=== PATIENT | female | born 1970 | race Caucasian/White ===

== ENCOUNTER 2018-04-21 16:16 | Observation (INO) ==
[2018-04-21] MEDS ORDERED: LABETALOL HCL IV 5 MG/ML 20ML IV STA (16:32)
[2018-04-21] MEDS ORDERED: ASPIRIN CHEW 324 MG PO STA (16:32)
--- NOTE | 2018-04-21 16:44 | Emergency Department Note ---
Entered by June Hernandez acting as a scribe for Ki Lobo MD History of Present Illness General Chief complaint: Chest Pain Stated complaint: CHEST PAINS Time Seen by Provider: 04/21/18 16:18 Source: patient History of Present Illness Onset (ago): unknown (last week) Location: chest Pain Consistency: + intermittent Maximum Pain Intensity: 5 Quality: + other (cramping/tight) Associated symptoms: + denies other symptoms (left arm pain, lightheaded, left shoulder "aching" ), + diaphoresis and + shortness of breath The patient is a 47 year old female who presents to the Emergency Room with complaints of intermittent chest pain that started last week. The patient rates her pain a 4-5/10 in severity. She reports she had some sharp episodes that would last about 1-2 minutes last week. She notes today the pain is more " crampy and tight." She also complains of left arm pain, lightheadedness, left shoulder "aching," shortness of breath, and intermittent diaphoresis with exertion. She states the pain is not exertional, but when she bends over she notices the pain more. The patient reports she was also brushing her teeth earlier and coughed up blood, but states it has not happened since then. She notes she has a history of pneumonia. The patient states she had a stress test many years ago and no issues were found. She reports a history of hypertension, increased heart rate, and high cholesterol. She states she was told to follow up with a [employer] but she has not done so. She denies a history of diabetes , as well as blood clots in the legs or lungs. She also denies any recent travels. The patient notes she last saw her PCP last spring or summer. The patient is a current every day smoker. Home Medications Home Medications Medication Instructions Recorded Confirmed Type hydrocodone-acetaminophen 1 - 2 tabs PO BID PRN 04/21/18 04/21/18 History magnesium oxide 400 mg PO DAILY 04/21/18 04/21/18 History oxycodone 5 mg PO BID PRN 04/21/18 04/21/18 History Allergies Allergy/AdvReac Type Severity Reaction Status Date / Time No Known Allergies Allergy Verified 04/21/18 17:03 Past Med/Surg History Medical History Hypercholesterolemia Hypertension Social History Feels Safe at Home: Yes Smoking Status: Current every day smoker Review of Systems See HPI for pertinent positives & negatives. and A total of 10 systems reviewed and were otherwise negative Physical Exam Vital Signs Vital Signs - 24 hr 04/21/18 16:23 04/21/18 16:24 04/21/18 16:33 Temperature 36.8 C Temperature Source Oral Sepsis Recent Fever Within 48 Hours No Sepsis New/Unexplained Change in Mental Status No Sepsis Action Taken by Nursing No Action Required Pulse Rate 128 H 110 H 113 H Pulse Rhythm Regular Regular Pulse Strength Normal Respiratory Rate 22 19 18 Respiratory Effort / Characteristics Non-Labored Spontaneous Respiratory Depth Normal Respiratory Pattern Regular Blood Pressure 165/114 H 165/114 H Blood Pressure Mean 131 131 Blood Pressure Position Sitting Pulse Oximetry 100 100 100 Oxygen Delivery Method Room Air Room Air 04/21/18 16:47 04/21/18 16:50 04/21/18 16:55 Temperature Temperature Source Sepsis Recent Fever Within 48 Hours Sepsis New/Unexplained Change in Mental Status Sepsis Action Taken by Nursing Pulse Rate 114 H 118 H 113 H Pulse Rhythm Pulse Strength Respiratory Rate 19 23 19 Respiratory Effort / Characteristics Respiratory Depth Respiratory Pattern Blood Pressure Blood Pressure Mean Blood Pressure Position Pulse Oximetry 99 99 Oxygen Delivery Method 04/21/18 16:58 04/21/18 17:00 04/21/18 17:01 Temperature Temperature Source Sepsis Recent Fever Within 48 Hours Sepsis New/Unexplained Change in Mental Status Sepsis Action Taken by Nursing Pulse Rate 115 H 114 H 111 H Pulse Rhythm Pulse Strength Respiratory Rate 19 20 23 Respiratory Effort / Characteristics Respiratory Depth Respiratory Pattern Blood Pressure 146/107 H 159/102 H Blood Pressure Mean 120 121 Blood Pressure Position Pulse Oximetry 99 99 99 Oxygen Delivery Method 04/21/18 17:05 04/21/18 17:06 Temperature Temperature Source Sepsis Recent Fever Within 48 Hours Sepsis New/Unexplained Change in Mental Status Sepsis Action Taken by Nursing Pulse Rate 104 H 100 H Pulse Rhythm Pulse Strength Respiratory Rate 13 15 Respiratory Effort / Characteristics Respiratory Depth Respiratory Pattern Blood Pressure 144/97 H Blood Pressure Mean 112 Blood Pressure Position Pulse Oximetry 99 99 Oxygen Delivery Method GENERAL: Patient is in no acute distress. HEENT: No acute trauma, normocephalic atraumatic, mucous membranes moist, no nasal congestion, no scleral icterus. NECK: No stridor, no adenopathy, no meningismus, trachea is midline. LUNGS: Clear to auscultation bilaterally, no wheeze, no rhonchi, breath sounds equal. HEART: Tachycardic with a regular rhythm, no murmurs. CHEST: Mildly tender over left anterior chest wall. ABDOMEN: Soft, nontender, bowel sounds positive, no hernias, no peritonitis. EXTREMITIES: No cyanosis or edema, full range of motion of all the joints without pain or difficulty, no signs for acute trauma. NEUROLOGIC: Oriented x 3, no acute motor or sensory deficits, no focal weakness. SKIN: No rash, no jaundice, no diaphoresis. Course 161: Past medical records reviewed. The patient was evaluated in room B2, and a complete history and physical examination were performed. 1739: I updated the patient on her results at this time. 1802: I reevaluated the patient. She is doing well. Her blood pressure and heart rate have improved. 1811: I discussed the patient's case with Dr. Armenta, [facility] Hospitalist. He will evaluate the patient for further management and care. Consultations Consultation #1: I discussed the patient's case with Dr. Armenta [facility] Hospitalist. He will evaluate the patient for further management and care. Time: 18:12 Administered Medications Ioversol (Optiray 320 125ml) 94 ml IV ONCE PRN PRN Reason: Interaction Checking Stop: 04/25/18 17:32 Last Admin: 04/21/18 17:33 Dose: 94 ml Discontinued Medications Aspirin (Aspirin) 324 mg PO NOW STA Stop: 04/21/18 16:33 Last Admin: 18 16:54 Dose: 324 mg Sodium Chloride (Nss) 500 mls @ 999 mls/hr IV .Q31M DICK Stop: 04/21/18 17:15 Last Infusion: 04/21/18 17:40 Dose: 0 mls/hr Admin: 18 16:54 Dose: 999 mls/hr Labetalol HCl (Normodyne) 20 mg IV NOW STA Stop: 04/21/18 16:33 Last Admin: 18 16:55 Dose: 20 mg Medical Decision Making Differential Diagnosis Differential includes: [place], angina, PE, aortic dissection, pneumonia, pneumothorax, anemia, musculoskeletal pain. Medical Records Attestation: I reviewed the patient's medical records. Home Medications Current Medication List: was personally reviewed by me Laboratory Data Attestation: I reviewed the patient's lab results. Result diagrams: 04/21/18 16:35 04/21/18 16:35 Lab Results 04/21/18 04/21/18 04/21/18 Range/Units 16:35 16:35 16:35 WBC 8.12 (4.8-10.8) K/uL RBC 4.60 (4.2-5.4) M/uL Hgb 15.9 (12.0-16.0) g/dL Hct 44.0 (37-47) % MCV 95.7 (80-100) fL MCH 34.6 H (25-34) pg MCHC 36.1 H (32-36) g/dL RDW Std Deviation 43.3 (36.4-46.3) fL RDW Coeff of [place] 12.5 (11.5-14.5) % Plt Count 317 (130-400) K/uL MPV 9.8 (7.4-10.4) fL Immature Gran % (Auto) 0.2 % Neut % (Auto) 72.1 % Lymph % (Auto) 20.7 % Holmes % (Auto) 5.7 % Eos % (Auto) 0.6 % Baso % (Auto) 0.7 % Immature Gran # (Auto) 0.02 (0.00-0.02) K/uL Neut # (Auto) 5.85 (1.4-6.5) K/uL Lymph # (Auto) 1.68 (1.2-3.4) K/uL Holmes # (Auto) 0.46 (0.11-0.59) K/uL Eos # (Auto) 0.05 (0-0.5) K/uL Baso # (Auto) 0.06 (0-0.2) K/uL PT 10.7 (9.0-12.0) Seconds INR 1.1 (0.9-1.1) APTT 26.3 (21.0-31.0) Seconds PTT Ratio 1.0 Sodium 136 (136-145) mmol/L Potassium 4.0 (3.5-5.1) mmol/L Chloride 101 (98-107) mmol/L Carbon Dioxide 25 (21-32) mmol/L Anion Gap 9.0 (3-11) BUN 10 (7-18) mg/dl Creatinine 0.94 (0.6-1.2) mg/dl Est Cr Clr Drug Dosing 81.2 ml/min Est GFR ( Amer) 83.7 Est GFR (Non-Af Amer) 72.2 BUN/Creatinine Ratio 10.6 (10-20) Glucose 85 (70-99) mg/dl Calcium 9.5 (8.5-10.1) mg/dl Magnesium 2.1 (1.8-2.4) mg/dl Total Bilirubin 0.4 (0.1-1) mg/dl AST 23 (15-37) U/L ALT 25 (12-78) U/L Alkaline Phosphatase 44 L (45-117) U/L Troponin I < 0.015 (0-0.045) ng/ml Total Protein 9.5 H (6.4-8.2) gm/dl Albumin 4.6 (3.4-5.0) gm/dl Globulin 4.9 H (2.5-4.0) gm/dl Albumin/Globulin Ratio 0.9 (0.9-2) Lipase 201 (73-393) U/L HCG, Qual (Negative) 04/21/18 Range/Units 16:35 WBC (4.8-10.8) K/uL RBC (4.2-5.4) M/uL Hgb (12.0-16.0) g/dL Hct (37-47) % MCV (80-100) fL MCH (25-34) pg MCHC (32-36) g/dL RDW Std Deviation (36.4-46.3) fL RDW Coeff of [place] (11.5-14.5) % Plt Count (130-400) K/uL MPV (7.4-10.4) fL Immature Gran % (Auto) % Neut % (Auto) % Lymph % (Auto) % Holmes % (Auto) % Eos % (Auto) % Baso % (Auto) % Immature Gran # (Auto) (0.00-0.02) K/uL Neut # (Auto) (1.4-6.5) K/uL Lymph # (Auto) (1.2-3.4) K/uL Holmes # (Auto) (0.11-0.59) K/uL Eos # (Auto) (0-0.5) K/uL Baso # (Auto) (0-0.2) K/uL PT (9.0-12.0) Seconds INR (0.9-1.1) APTT (21.0-31.0) Seconds PTT Ratio Sodium (136-145) mmol/L Potassium (3.5-5.1) mmol/L Chloride (98-107) mmol/L Carbon Dioxide (21-32) mmol/L Anion Gap (3-11) BUN (7-18) mg/dl Creatinine (0.6-1.2) mg/dl Est Cr Clr Drug Dosing ml/min Est GFR ( Amer) Est GFR (Non-Af Amer) BUN/Creatinine Ratio (10-20) Glucose (70-99) mg/dl Calcium (8.5-10.1) mg/dl Magnesium (1.8-2.4) mg/dl Total Bilirubin (0.1-1) mg/dl AST (15-37) U/L ALT (12-78) U/L Alkaline Phosphatase (45-117) U/L Troponin I (0-0.045) ng/ml Total Protein (6.4-8.2) gm/dl Albumin (3.4-5.0) gm/dl Globulin (2.5-4.0) gm/dl Albumin/Globulin Ratio (0.9-2) Lipase (73-393) U/L HCG, Qual Negative (Negative) Imaging Data Radiologist's Impression: Radiology results as stated below per my review and the radiologist's interpretation: XR chest 1V portable HISTORY: Atypical Chest Pain COMPARISON: Chest CT 03/11/2017. FINDINGS: The lungs are clear. Cardiac silhouette is normal in size. No pleural effusions. No pneumothorax. IMPRESSION: No acute process. Electronically signed by: Godfrey Lynn M.D. 04/21/2018 5:21 PM. CHEST CTA for PULMONARY ARTERIES CT DOSE: 301.76 mGy.cm HISTORY: Left-sided chest pain. TECHNIQUE: Multiaxial CT images of the chest were performed following the intravenous administration of contrast to evaluate the pulmonary arteries. Maximal intensity projection images were also obtained. A dose lowering technique was utilized adhering to the principles of ALARA. COMPARISON STUDY: Chest CT 03/11/2017. FINDINGS: There is a healing left lateral ninth rib fracture. No acute fractures within the visualized osseous structures. Cholecystectomy. The visualized spleen and left adrenal gland are unremarkable. Stable mild thickening of the right adrenal gland. There are 2 hypodense lesions within the liver with the largest in the right hepatic lobe measuring 4.2 cm. These remain unchanged and likely represent cysts. No mediastinal or hilar lymphadenopathy. The heart is normal in size. No pleural or pericardial effusions. No pneumothorax. The central airways are patent. Stable 3 mm nodule within the left lower lobe in image 83. Therefore, this is likely benign. Otherwise, the lungs are clear. Normal caliber thoracic aorta with no evidence for dissection. No filling defects within the pulmonary arteries to suggest pulmonary embolus. IMPRESSION: 1. No evidence for pulmonary embolus. 2. Healing left lateral ninth rib fracture. No acute rib fractures. No pneumothorax. 3. Additional stable findings as described above. Electronically signed by: Godfrey Lynn M.D. 04/21/2018 5:57 PM ECG Data Attestation: I personally reviewed and interpreted this ECG as follows: Indication: chest pain Rate (beats per minute): 133 Rhythm: sinus tachycardia Findings: no PVC and no ST elevation Blood Pressure Blood Pressure Findings: Elevated blood pressure Blood Pressure Disposition: further management by hospitalist MDM Narrative There is no leukocytosis or concerning anemia. No significant electrolyte abnormality, kidney failure or hepatitis. There is no coagulopathy. No evidence for pancreatitis. testing was negative. EKG shows a sinus tachycardia, no acute ischemia. Cardiac enzyme testing x1 is not consistent with acute cardiac injury. Chest film does not show mediastinal widening, pneumothorax or pneumonia. Chest CT does not show evidence for PE or for aortic dissection. Patient received IV saline, oral aspirin and IV Lopressor. Her symptoms have improved, her heart rate and blood pressure are improved. The patient presents with chest pain. She has multiple cardiac risk factors. Things have worsened for her in the last week. I do think further cardiac workup would be warranted. I spoke to the patient at length, I talked with case management. The on-call hospitalist was consulted. Impression & Plan Precordial chest pain, Hypertension, Tachycardia Discharge Plan Visit Data Chief Complaint: Chest Pain Stated Complaint: CHEST PAINS ED Provider: Ki Lobo Discharge Problem: Precordial chest pain, Hypertension, Tachycardia Patient Disposition: Being Evaluated by Hospitalist Forms Stand Alone Forms: Call Back Authorization, My [facility] Prescriptions Prescriptions: No Action magnesium oxide 400 mg (241.3 mg magnesium) tablet 400 mg PO DAILY RF: 0 hydrocodone-acetaminophen 5-325 mg Tablet 1 - 2 tabs PO BID PRN (Reason: Pain) RF: 0 oxycodone 5 mg Capsule 5 mg PO BID PRN (Reason: Pain) RF: 0 Referrals Referrals: Junior Goldberg DO [Primary Care Provider] - The scribe's documentation has been prepared under my direction and personally reviewed by me in its entirety. I confirm that the note above accurately reflects all work, treatment, procedures, and medical decision making performed by me.
[2018-04-21] MEDS ORDERED: SODIUM CHLORIDE 0.9% 500 ML IV SCH (16:45)
[2018-04-21 17:00] LABS: Basophils # (auto) 0.06 K/uL (0-0.2); Basophils % (auto) 0.7 %; Eosinophils # (auto) 0.05 K/uL (0-0.5); Eosinophils % (auto) 0.6 %; Hemoglobin 15.9 g/dL (12.0-16.0); Immature Granulocytes # (auto) 0.02 K/uL (0.00-0.02); Immature Granulocytes % (auto) 0.2 %; Lymphocytes # (auto) 1.68 K/uL (1.2-3.4); Lymphocytes % (auto) 20.7 %; Mean Corpuscular Hgb Conc 36.1 g/dL (32-36); Mean Corpuscular Volume 95.7 fL (80-100); Mean Platelet Volume 9.8 fL (7.4-10.4); Monocytes # (auto) 0.46 K/uL (0.11-0.59); Monocytes % (auto) 5.7 %; Neutrophils # (auto) 5.85 K/uL (1.4-6.5); Neutrophils % (auto) 72.1 %; Platelet Count 317 K/uL (130-400); RDW Coefficient of Variation 12.5 % (11.5-14.5); RDW Standard Deviation 43.3 fL (36.4-46.3); White Blood Count 8.12 K/uL (4.8-10.8)
[2018-04-21 17:13] LABS: Albumin Level 4.6 gm/dl (3.4-5.0); Aspartate Aminotransferase 23 U/L (15-37); BUN Creatinine Ratio 10.6 (10-20); Blood Urea Nitrogen 10 mg/dl (7-18); Calcium 9.5 mg/dl (8.5-10.1); Carbon Dioxide 25 mmol/L (21-32); Chloride 101 mmol/L (98-107); Creatinine Clr Calc Pharmacy 81.2 ml/min; Est GFR (African American) 83.7; Est GFR (Non-African American) 72.2; Glucose 85 mg/dl (70-99); Magnesium 2.1 mg/dl (1.8-2.4); Sodium 136 mmol/L (136-145)
[2018-04-21 17:18] LABS: Alanine Aminotransferase 25 U/L (12-78); Albumin Globulin Ratio 0.9 (0.9-2); Alkaline Phosphatase 44 U/L (45-117); Bilirubin,Total 0.4 mg/dl (0.1-1); Globulin 4.9 gm/dl (2.5-4.0); Total Protein 9.5 gm/dl (6.4-8.2); Troponin I < 0.015 ng/ml (0-0.045)
--- NOTE | 2018-04-21 17:23 | XRay Report ---
XR chest 1V portable HISTORY: Atypical Chest Pain COMPARISON: Chest CT 03/11/2017. FINDINGS: The lungs are clear. Cardiac silhouette is normal in size. No pleural effusions. No pneumot horax. IMPRESSION: No acute process. Electronically signed by: Godfrey Lynn M.D. 04/21/2018 5:21 PM
[2018-04-21 17:25] LABS: Pregnancy Test, Serum Negative (Negative)
[2018-04-21] MEDS ORDERED: OPTIRAY 320 125ml IV PRN (17:33)
[2018-04-21 17:49] LABS: INR 1.1 (0.9-1.1); Partial Thromboplastin Time 26.3 Seconds (21.0-31.0); Prothrombin Time 10.7 Seconds (9.0-12.0)
--- NOTE | 2018-04-21 17:58 | CT Scan Report ---
CHEST CTA for PULMONARY ARTERIES CT DOSE: 301.76 mGy.cm HISTORY: Left-sided chest pain. TECHNIQUE: Multiaxial CT images of the chest were performed following the intravenous administration of contrast to evaluate the pulmonary arteries. Maximal intensity projection images were also obtaine d. A dose lowering technique was utilized adhering to the principles of ALARA. COMPARISON STUDY: Chest CT 03/11/2017. FINDINGS: There is a healing left lateral ninth rib fracture. No acute fractures within the visualize d osseous structures. Cholecystectomy. The visualized spleen and left adrenal gland are unremarkable. Stable mild thickening of the right adrenal gland. There are 2 hypodense lesions within the liver wi th the largest in the right hepatic lobe measuring 4.2 cm. These remain unchanged and likely represen t cysts. No mediastinal or hilar lymphadenopathy. The heart is normal in size. No pleural or pericard ial effusions. No pneumothorax. The central airways are patent. Stable 3 mm nodule within the left lo wer lobe in image 83. Therefore, this is likely benign. Otherwise, the lungs are clear. Normal calibe r thoracic aorta with no evidence for dissection. No filling defects within the pulmonary arteries to suggest pulmonary embolus. IMPRESSION: 1. No evidence for pulmonary embolus. 2. Healing left lateral ninth rib fracture. No acute rib fractures. No pneumothorax. 3. Additional stable findings as described above. Electronically signed by: Godfrey Lynn M.D. 04/21/2018 5:57 PM
[2018-04-21] MEDS ORDERED: ALUMINUM/MAGNESIUM SUSP 30 ML UDC PO PRN (21:09)
[2018-04-21] MEDS ORDERED: ONDANSETRON INJ 2 MG/ML 2 ML VIAL IV PRN (21:09)
[2018-04-21] MEDS ORDERED: MAGNESIUM HYDROXIDE SUSP 30 ML UDC PO PRN (21:09)
[2018-04-21] MEDS ORDERED: POLYETHYLENE (MIRALAX) 17 GM PACK PO PRN (21:09)
[2018-04-21] MEDS ORDERED: HYDROCODONE/ACETAMOPHEN 5/325MG TAB PO PRN (21:09)
[2018-04-21] MEDS ORDERED: NITROGLYCERIN SL 0.4 MG/TAB TAB SL PRN (21:09)
[2018-04-21] MEDS ORDERED: ACETAMINOPHEN 325 MG TAB PO PRN (21:09)
[2018-04-21] MEDS ORDERED: OXYCODONE HCL IR 5 MG TAB (IMMEDIATE RELEASE) PO PRN (21:17)
[2018-04-21] MEDS ORDERED: Nursing to Pharmacy Communication ONE (22:15)
[2018-04-21] MEDS: NICOTINE 21 MG/24 HR TDSY TD SCH (22:34)
--- NOTE | 2018-04-21 22:42 | History & Physical Report ---
Date of Service April 21, 2018 Assessment & Plan (1) Precordial chest pain: Her symptoms, combined with a clear chest CT, essentially rule out lung pathology as the culprit. Her risks including blood pressure, cholesterol, and tobacco, make coronary disease the diagnosis of exclusion. -We will rule this out with serial troponins, and then a stress echo in the morning, if the troponins are negative. Her symptoms do appear most consistent with musculoskeletal pain, given that her cervical radiculopathy has been bothering her more, her shoulder girdle and upper rib cage muscles are likely tense from being more guarded overall. I suspect she would benefit from ongoing OMT. (2) Hypertension: She has been given labetalol in the ER. She notes at home her blood pressures typically run 120/80 type ranges. She is uncertain of the validity of her cuff, but we discussed that generally ambulatory pressures are going to carry an overall better degree of accuracy of the patient's baseline state, then pressures when they are in the hospital under significant stress. We will follow this closely, and treat if needed, otherwise outpatient follow-up. (3) Tachycardia: She notes a baseline resting heart rate of around 100. It is possible this is simply just her baseline. We will follow her heart rates, and check an echocardiogram in the morning to rule out structural heart disease. She appears to be sinus, so I would not necessarily treat specifically for sinus tachycardia. She may need outpatient ambulatory rhythm monitoring. (4) Hypercholesterolemia: Check a lipid panel in the morning. (5) Back pain: She notes a history of facet arthritis, as well as symptoms that do seem to fit with a degree of radiculopathy, but these do not appear to dominate her picture of symptomatology. It seems most consistent with predominantly muscular low back pain, especially given what treatments she is failed. Her tenderness in the piriformis region seems to corroborate this quite significantly, as does her paraspinal hypertonicity. I discussed with her at length treatment modalities for this, and that with my experience with prior patients with significant back histories, a majority of people finally showed improvement in symptoms with manipulative medicine directed predominantly at the soft tissues. She seemed simultaneously both understanding and skeptical, I noted that I would give her good outline of my assessment of her back pain, and what treatment plan I would consider her appropriate for, so that she can pursue at her own discretion after discharge. In the meantime, we will initiate Voltaren gel. I gave consideration to initiating OMT here, but given that it will likely take quite a while of repeated treatments to start to improve this chronic condition, I felt that one treatment at a random point in time would likely not improve her symptoms, but if she saw treatment give her no immediate relief, it might falsely direct her away from what will likely be a helpful modality for her pain. (6) Cervical radiculopathy: Ongoing outpatient follow-up, she may benefit from OMT directed at cervical paraspinal and related musculature hypertonicity as well, even if the disc is not directly addressed. (7) DVT prophylaxis: Ambulation (8) Elevated total protein: Seems to be persistent, she shows no lesions on x-ray that would be consistent with a protein deposition or myelomatous process, so mostly this should be for outpatient follow-up. One could consider something such as an SPEP or UPEP for completeness. History of Present Illness Chief Complaint: Chest pain Primary Care Provider: Junior Goldberg DO Patient has had chest pain on again off again for the last day or so. For the most part it is substernal and a little bit left of sternal, noting it is stabbing in sensation "like an ice poker" whenever it is going on she feels like she cannot quite get enough air, she does not specifically relate that it hurts to breathe, more that she cannot get enough air. Although separately she notes a sensation of not being able to get enough air that may be unrelated to the chest pain. This is all been going on again off again for several days, and then today, the pain was much bigger broader and more diffuse across her entire chest. She has also had times where it was more in the left upper chest. Generally the sensation is always stabbing like a poker. She has had a degree of dyspnea on exertion, however she notes it is been slowly worsening over several years, as she has been less and less active due to back pain, not anything that has abruptly worsened recently. She does continue to smoke, although the last several days given that she is feeling worse, she notes she is cut down considerably. Last time she tried to quit was in her early 30s, and she seemed to quit successfully without trouble for several months, it is unclear why she started smoking again. She does note that her smokes and right now quitting would be very difficult. She notes a baseline of resting tachycardia, and relates that her resting heart rate seems to hover around 100 210, and has for quite a long time. She also relates that more recently she has been dealing pain radiating to her left shoulder due to cervical disc disease. And she notes that due to low back pain, she has had a lot of pain progressive stiffness and decreased mobility over the last 10 years. This pain is mostly in her lower back, and buttock. It does occasionally radiate down her leg to her heel or foot. She notes she has been seen at several centers, and they have told her that surgery is not an option. She is tried physical therapy which has not really helped, and she has tried chiropractic which has not really helped, although on specific clarification she had been treated with chiropractic that did almost exclusively bony adjustments, and not necessarily any soft tissue work. Allergies Allergy/AdvReac Type Severity Reaction Status Date / Time No Known Allergies Allergy Verified 04/21/18 17:03 Home Medications Home Medications Medication Instructions Recorded Confirmed Type hydrocodone-acetaminophen 1 - 2 tabs PO BID PRN 04/21/18 04/21/18 History magnesium oxide 400 mg PO DAILY 04/21/18 04/21/18 History oxycodone 5 mg PO BID PRN 04/21/18 04/21/18 History Past Med/Surg History Medical History Hypercholesterolemia Hypertension Family History Father Coronary artery disease Social History Current Living Situation: Spouse Current Living Situation Comment: with Other Information That Helps Us Care for You: No Feels Safe at Home: Yes Smoking Status: Current every day smoker Tobacco Type: cigarettes Cigarettes per Day: 20 Do You Dip or Chew Tobacco: No Second Hand Exposure: Yes Tobacco Cessation Education Requested by Patient: Yes Hx Alcohol Use: Yes Alcohol type: beer Alcohol Intake Frequency: 0-2 drinks per day Beliefs That Will Affect Care: None Preferred Language: Kiswahili Communication Ability: Effective Avp Required: No Review of Systems All systems reviewed & are unremarkable except as noted in HPI & below She also notes that she is perimenopausal and occasionally gets hot flashes and sweats, but that has been unrelated to the current situation. Physical Exam 2 Vital Signs (Past 24 Hours): Last Vital Signs Temp 36.9 C 04/21/18 21:14 Pulse 96 H 04/21/18 21:14 Resp 16 04/21/18 21:14 BP 153/92 H 04/21/18 21:14 Pulse Ox 96 04/21/18 21:14 Physical Exam: In general she is awake alert oriented x3, pleasant, appears a bit anxious, but no acute distress. HEENT normocephalic atraumatic mucous members are moist. Cardio is regular without any rubs murmurs or gallops. Lungs clear to auscultation bilaterally no rales rhonchi or wheezes good effort. Skin shows no rashes no pallor or icterus. Abdomen is soft nondistended nontender no masses or organomegaly. Extremities show no cyanosis clubbing or edema, no calf tenderness. Neuro exam shows cranial nerves II through XII are grossly intact gross motor and sensory intact. Musculoskeletal exam shows significant almost wincing reproducibly tender anterior chest wall in the intercostal region and possibly in the region of pectoralis major and pectoralis minor. She also has rather significant bilateral paraspinal hypertonicity. She has fairly exquisite tenderness in the region of her right piriformis muscle. Mental status shows good recent and remote recall, somewhat anxious mood and affect, good judgment and insight overall. Results & Data Laboratory Results Noted reviewed, and is in the chart. Her troponin is negative right now. Diagnostic Findings Labs and diagnostics noted, her EKG shows no ischemic changes. _ (1) Hypertension Hypertension type: unspecified Qualified Code(s): I10 - Essential (primary) hypertension
[2018-04-22 02:24] LABS: Chol HDL Ratio 3; Cholesterol 236 mg/dl (0-200); HDL Cholesterol 70 mg/dl; LDL Cholesterol Calculated 136 mg/dl; Triglycerides 148 mg/dl (0-150); Troponin I < 0.015 ng/ml (0-0.045); VLDL Cholesterol 30 mg/dl
[2018-04-22] MEDS: DICLOFENAC SOD 1% GEL 100 GM TUBE EXT SCH ×2 (07:26→12:36)
[2018-04-22] MEDS ORDERED: INFLUENZA ADMINISTRATION CHARGE ONE (08:00)
[2018-04-22] MEDS ORDERED: INFLUENZA VIRUS QUAD VACCINE 0.5 ML SYR IM ONE (08:00)
[2018-04-22] MEDS ORDERED: MAGNESIUM OXIDE 400 MG TAB PO SCH (09:00)
[2018-04-22] MEDS: NICOTINE 21 MG/24 HR TDSY TD SCH (10:15)
--- NOTE | 2018-04-22 16:55 | Discharge Summary ---
Date of Service April 22, 2018 Admission HPI Per Admitting Provider Patient has had chest pain on again off again for the last day or so. For the most part it is substernal and a little bit left of sternal, noting it is stabbing in sensation "like an ice poker" whenever it is going on she feels like she cannot quite get enough air, she does not specifically relate that it hurts to breathe, more that she cannot get enough air. Although separately she notes a sensation of not being able to get enough air that may be unrelated to the chest pain. This is all been going on again off again for several days, and then today, the pain was much bigger broader and more diffuse across her entire chest. She has also had times where it was more in the left upper chest. Generally the sensation is always stabbing like a poker. She has had a degree of dyspnea on exertion, however she notes it is been slowly worsening over several years, as she has been less and less active due to back pain, not anything that has abruptly worsened recently. She does continue to smoke, although the last several days given that she is feeling worse, she notes she is cut down considerably. Last time she tried to quit was in her early 30s, and she seemed to quit successfully without trouble for several months, it is unclear why she started smoking again. She does note that her smokes and right now quitting would be very difficult. She notes a baseline of resting tachycardia, and relates that her resting heart rate seems to hover around 100 210, and has for quite a long time. She also relates that more recently she has been dealing pain radiating to her left shoulder due to cervical disc disease. And she notes that due to low back pain, she has had a lot of pain progressive stiffness and decreased mobility over the last 10 years. This pain is mostly in her lower back, and buttock. It does occasionally radiate down her leg to her heel or foot. She notes she has been seen at several centers, and they have told her that surgery is not an option. She is tried physical therapy which has not really helped, and she has tried chiropractic which has not really helped, although on specific clarification she had been treated with chiropractic that did almost exclusively bony adjustments, and not necessarily any soft tissue work. Principal Diagnosis Muscular chest pain Discharge Data Allergies Allergy/AdvReac Type Severity Reaction Status Date / Time No Known Allergies Allergy Verified 04/21/18 17:03 Consultations 04/21/18 18:13 ED Decision to Admit Stat Ordered Studies 04/21/18 16:32 CT angio chest PE protocol Stat Hospital Course (1) Precordial chest pain: Her symptoms, combined with a clear chest CT, essentially rule out lung pathology as the culprit. Her negative cardiac enzymes, and normal stress echo/echocardiogram effectively rule out cardiac pathology as the cause. Her risks including blood pressure, cholesterol, and tobacco, made coronary disease the diagnosis of exclusion, necessitating her expedited workup.. Her symptoms do appear most consistent with musculoskeletal pain, given that her cervical radiculopathy has been bothering her more, her shoulder girdle and upper rib cage muscles are likely tense from being more guarded overall. I suspect she would benefit from ongoing OMT. We had an extensive discussion about this. I have also prescribed Voltaren gel. She is stable for home, with close follow-up. (2) Hypertension: Inpatient blood pressures were a bit labile, ranging from stage II type hypertensive readings to very normal. I suspect her elevations were more from stress, and the hospital environment in general, she does have a blood pressure cuff at home, and she should check frequent ambulatory monitoring, and check her cuff against the cuff at her PCPs office for accuracy. (3) Tachycardia: She notes a baseline resting heart rate of around 100. It is possible this is simply just her baseline. Other than poor exercise tolerance, there was no pathology that appears to have been causing this (4) Hypercholesterolemia: She is dyslipidemic, by Allamuchy criteria she would benefit from a statin, by the ACC guidelines lifestyle change alone would suffice. Probably the biggest thing would be reducing her cardiac risk overall by getting her to quit smoking, which we discussed repeatedly and extensively. For now we will defer statin are not to her PCP and for ongoing follow-up. (5) Back pain: She notes a history of facet arthritis, as well as symptoms that do seem to fit with a degree of radiculopathy, but these do not appear to dominate her picture of symptomatology. It seems most consistent with predominantly muscular low back pain, especially given what treatments she is failed. Her tenderness in the piriformis region seems to corroborate this quite significantly, as does her paraspinal hypertonicity. I discussed with her at length treatment modalities for this, and that with my experience with prior patients with significant back histories, a majority of people finally showed improvement in symptoms with manipulative medicine directed predominantly at the soft tissues. She seemed simultaneously both understanding and skeptical, I noted that I would give her good outline of my assessment of her back pain, and what treatment plan I would consider her appropriate for, so that she can pursue at her own discretion after discharge. In the meantime, we will initiate Voltaren gel. I gave consideration to initiating OMT here, but given that it will likely take quite a while of repeated treatments to start to improve this chronic condition, I felt that one treatment at a random point in time would likely not improve her symptoms, but if she saw treatment give her no immediate relief, it might falsely direct her away from what will likely be a helpful modality for her pain. We discussed that treatment could be possibly carried out by chiropractic, if soft tissue techniques are the focus. However ideally she would be able to follow routinely with Dr. Ronald Khan DO, [facility], as OMT is a large focus of his practice. (6) Cervical radiculopathy: Ongoing outpatient follow-up, she may benefit from OMT directed at cervical paraspinal and related musculature hypertonicity as well, even if the disc is not directly addressed. (7) DVT prophylaxis: Ambulation was utilized during her stay. (8) Elevated total protein: Seems to be persistent, she shows no lesions on x-ray that would be consistent with a protein deposition or myelomatous process, so mostly this should be for outpatient follow-up. One could consider something such as an SPEP or UPEP for completeness. Outpatient follow-up in this regard. Total Time Total Time Spent Total Time Spent (In Minutes): Greater than 30 Discharge Plan Discharge Items Patient Disposition: Home - Self-Care Reason For Visit: CHEST PAIN Discharge Diagnosis: muscular chest pain Discharge Goals: Diagnostic testing Activity: Resume your previous activity Activity Comment: see "additional instructions" Non-emergency contact: Primary Care Provider Call non-emergency contact if: your pain is worsening Follow-up/Referrals: Junior Goldberg DO [Primary Care Provider] - 04/24/18 1:20 pm (Please, follow up with Dr. Goldberg on April 24 at 1:20 pm. *If you need to change this appointment, call the office at [phone].) Diet: Regular Addtl Provider Instructions: Chest pain -Fortunately a rather extensive workup has ruled out concerning diseases. �The CT scan of your chest being clear rules out pneumonia, blood clots, and effectively rules out any torn blood vessels in your chest. �Your EKGs, negative cardiac enzymes (troponin), and normal stress test rule out heart disease including valve problems, blockage problems, or other structural heart problems. �Your symptoms for the most with muscular pain, as does your physical exam. �Certainly indigestion and reflux can play a role, but typically have different symptoms, including the fact that your current symptoms were different than your usual indigestion. �See below Muscular pain �Your chest pain appears to be muscular. The muscles that tie your shoulder and rib cage together attached to your ribs, and where you were tender, and where the pain is, fits very well with where those muscles ago. It is quite likely that as your neck has been more of a problem, those muscles have gotten tighter, guarding your neck from moving as much. �Your chronic back pain appears to be heavily muscular as well. Certainly it sounds like there is a degree of bone and/or disc disease involved, but a large degree of the pain there appears to be from tight paraspinal muscles, as well as a tight muscle that holds your tailbone and hip together, called piriformis. �In general modalities to loosen those muscles improving your chest and neck pain, as well as her chronic back pain. �Light cardiovascular exercise (such as a [id number]-[id number] walk or ride) will improve blood flow to those muscles, allowing them to relax more easily. �Quitting smoking will allow for better blood flow to your muscles as well. �Manipulative medicine directed as much more of a soft tissue technique and then a bony adjustment will likely do you far better over time to improve the tightness and pain in the muscles. -In this respect, I would have someone who is working more soft tissue focused techniques, such as counterstrain, ligamentous articular strain, muscle energy, direct myofascial. Some chiropractors are trained in doing these techniques, but if you are having difficulty finding someone who can work on you in this way, Dr. Ronald Khan DO of [facility] is extremely well trained in doing these kind of techniques, to the point that he even teaches them to other physicians. -In addition to the manipulative medicine (hands-on techniques) the Voltaren gel as a topical anti-inflammatory does a nice job as an add-on in helping control some of the muscle pain. You can use it on just about any sore muscle, but realized that you generally do not feel it when you put it on, as it is a anti-inflammatory that takes 2 or 3 days of using 3-4 times a day to really start to take effect. I would start by using it on your lumbar paraspinal muscles (the muscles beside the spine and your low back) and your piriformis muscle (it is a muscle in your buttocks that ties your tailbone to your hip, and is a very common culprit and muscular low back pain). (You can find the location of piriformis by simply doing a Google image search of "piriformis muscle"). Indigestion �Indigestion is a common cause of chest pain that looks like heart disease, and certainly you do have indigestion, but the set of symptoms that brought you to the hospital sounded much more muscular than stomach. �That said, because you have had long-standing indigestion, as well as other bowel symptoms, it would be well worth her while to see a door closer for at least an upper endoscopy, if not a colonoscopy as well. �In the meantime, you could manage her indigestion with something like 150 mg of Zantac (ranitidine) at bedtime. It is available [id number]. Smoking �In regards to her pain, because nicotine constricts blood vessels, and good blood flow as part of what allows muscles to stay more relaxed, there is a serious impediment to how much better your back and neck pain can get while you still smoke. �In addition to that, you are still young enough that you can probably "dodged the bullet" of a lot of smoking related heart, lung, and cancer disease. �It is very difficult to quit, probably the best starting point would be you and your planning on how to go about it together, and then discussing with your primary care physician about any medical assistance with quitting if you run into difficulties after trying to start her plan. Other quitting modalities such as calling 1 [phone] quit now, can be helpful as well. Prescriptions: New diclofenac sodium [Voltaren] 1 % gel 2 gm TOP QID Qty: 100 RF: 2 Continue magnesium oxide 400 mg (241.3 mg magnesium) tablet 400 mg PO DAILY RF: 0 hydrocodone-acetaminophen 5-325 mg Tablet 1 - 2 tabs PO BID PRN (Reason: Pain) RF: 0 Discontinued oxycodone 5 mg Capsule 5 mg PO BID PRN (Reason: Pain) RF: 0 Visit Report Forms: [facility] Discharge Orders: Discharge Order (Routine); Ordered 04/22/18 Ordered By: Ermias Armenta Admission Data Admit Date/Time: 04/21/18 20:03 Attending Provider: Ermias Armenta Admit Provider: Ermias Armenta Primary Care Provider: Junior Goldberg Other Providers: Ermias Armenta Service: Telemetry Other Interventions: Discharge Summary Assessment (RN) Last Done: 04/22/18 16:31
== END 2018-04-22 17:28 | disposition home or self-care (01) ==
LOC: 2S 16:16 → ED 16:16 → 2S 20:21